=== PATIENT | female | born 1985 | race American Indian/Alaskan Native ===

== ENCOUNTER 2021-11-12 21:27 | Emergency (ER) | payer SELFPAY ==
[2021-11-12 22:07] VITALS: BP 165/87
[2021-11-13] MEDS ORDERED: SODIUM CHLORIDE 0.9% 1000 ML 1,000 ML ONE ×2 (16:30→22:18)
[2021-11-13] MEDS ORDERED: NALOXONE 0.4 MG/1 ML INJ ONE (22:16)
== END 2021-11-13 12:26 | disposition left against medical advice (07) ==
LOC: ED 21:27
DX: I10 Essential (primary) hypertension (principal); Z53.21 Procedure and treatment not carried out due to patient leaving prior to being seen by health care provider
CPT/HCPCS: J2310; J7030

== ENCOUNTER 2021-12-16 10:19 | Inpatient (IN) | payer BC ==
[2021-12-16] MEDS ORDERED: ASPIRIN 325 MG TAB PO ONE (18:17)
--- NOTE | 2021-12-16 18:48 | XRay Report ---
CHEST 2 VIEWS INDICATION / CLINICAL INFORMATION: bilateral leg swelling and SOB. COMPARISON: None available. FINDINGS: SUPPORT DEVICES: None. HEART / MEDIASTINUM: Borderline cardiomegaly. LUNGS / PLEURA: No significant pulmonary or pleural abnormality. No pneumothorax. ADDITIONAL FINDINGS: No significant additional findings. IMPRESSION: 1. Borderline cardiomegaly without acute pulmonary abnormality. Signer Name: Efren Dickey MD Signed: 12/16/2021 6:43 PM Workstation Name: [id number]
[2021-12-16 20:13] LABS: Mean Corpuscular HGB Conc 28 % (30-34); Platelet Count 567 K/mm3 (140-440); Red Blood Count 2.26 M/mm3 (3.65-5.03)
[2021-12-16 20:32] LABS: Alanine Aminotransferase 20 units/L (7-56); Albumin 3.9 g/dL (3.9-5); BUN/Creatinine Ratio 11; Blood Urea Nitrogen 9 mg/dL (7-17); Calcium 8.8 mg/dL (8.4-10.2); Hemolysis Index 0
[2021-12-16 21:30] LABS: Mean Corpuscular Volume 67 fl (79-97); Red Cell Distribution Width 38.3 % (13.2-15.2)
[2021-12-16 21:32] LABS: Hematocrit 15.1 % (30.3-42.9); Hemoglobin 4.2 gm/dl (10.1-14.3)
[2021-12-16] MEDS ORDERED: SODIUM CHLORIDE 0.9% 500 ML 500 ML IV ONE (23:44)
[2021-12-16 23:45] LABS: Anisocytosis 3+; Total Cells Counted 100
[2021-12-16 23:46] LABS: Hypochromasia 1+
[2021-12-17] MEDS ORDERED: MORPHINE 4 MG/1 ML INJ IV PRN (01:22)
[2021-12-17] MEDS ORDERED: MORPHINE 2 MG/1 ML INJ IV PRN (01:22)
[2021-12-17] MEDS ORDERED: ACETAMINOPHEN 325 MG TAB PO PRN (01:22)
[2021-12-17] MEDS ORDERED: ONDANSETRON 4 MG/2 ML INJ IV PRN (01:22)
[2021-12-17] MEDS ORDERED: MAGNESIUM HYDROXIDE (MOM) ORAL LIQD UDC PO PRN (01:22)
--- NOTE | 2021-12-17 01:28 | Emergency Department Report ---
ED General Adult HPI - General Chief complaint: Medical Clearance Stated complaint: BILATERAL FOOT SWELLING Time Seen by Provider: 12/16/21 23:51 Source: patient Mode of arrival: Ambulatory Limitations: No Limitations - History of Present Illness -: days(s) Radiation: non-radiation Consistency: constant Improves with: none Associated Symptoms: chest pain, malaise, weakness Treatments Prior to Arrival: none - Related Data Allergies Allergy/AdvReac Type Severity Reaction Status Date / Time No Known Allergies Allergy Verified 12/16/21 10:50 ED Review of Systems ROS: Stated complaint: BILATERAL FOOT SWELLING Other details as noted in HPI Constitutional: denies: chills, fever Eyes: denies: eye pain, eye discharge, vision change ENT: denies: ear pain, throat pain Respiratory: denies: cough, shortness of breath, wheezing Cardiovascular: denies: chest pain, palpitations Endocrine: no symptoms reported Gastrointestinal: denies: abdominal pain, nausea, diarrhea Genitourinary: denies: urgency, dysuria, discharge Musculoskeletal: denies: back pain, joint swelling, arthralgia Skin: denies: rash, lesions Neurological: denies: headache, weakness, paresthesias Psychiatric: denies: anxiety, depression Hematological/Lymphatic: denies: easy bleeding, easy bruising ED Past Medical Hx - Past Medical History Previous Medical History?: No Hx Hypertension: No ED Physical Exam - General Limitations: No Limitations General appearance: alert, in no apparent distress - Head Head exam: Present: atraumatic, normocephalic - Eye Eye exam: Present: normal appearance - ENT ENT exam: Present: mucous membranes moist - Neck Neck exam: Present: normal inspection - Respiratory Respiratory exam: Present: normal lung sounds bilaterally. Absent: respiratory distress - Cardiovascular Cardiovascular Exam: Present: regular rate, normal rhythm. Absent: systolic murmur, diastolic murmur, rubs, gallop - GI/Abdominal GI/Abdominal exam: Present: soft, normal bowel sounds - Extremities Exam Extremities exam: Present: normal inspection - Back Exam Back exam: Present: normal inspection - Neurological Exam Neurological exam: Present: alert, oriented X3 - Psychiatric Psychiatric exam: Present: normal affect, normal mood - Skin Skin exam: Present: intact, normal color, pallor. Absent: rash ED Course Vital Signs 12/16/21 10:47 Temperature 97.7 F Pulse Rate 93 H Respiratory 18 Rate Blood Pressure 140/71 [Left] O2 Sat by Pulse 99 Oximetry ED Medical Decision Making - Lab Data Result diagrams: 12/16/21 19:54 12/16/21 19:54 Critical care attestation.: If time is entered above; I have spent that time in minutes in the direct care of this critically ill patient, excluding procedure time. ED Disposition Clinical Impression: Anemia Disposition: 01 HOME / SELF CARE / HOMELESS Is pt being admited?: No Does the pt Need Aspirin: No Condition: Stable
--- NOTE | 2021-12-17 01:34 | History and Physical Report ---
History of Present Illness Date of examination: 12/17/21 Date of admission: 12/17/2021 Chief complaint: Shortness of Breath Lower Extremity Swelling History of present illness: 36-year-old -[place]ong[place] female with no significant past medical history except for remote history of anemia in the past presenting in the. Denies any coffee-ground emesis today complaining of generalized weakness, shortness of breath and lower extremity swelling. Symptoms have been ongoing for the past 2 weeks. She denies any chest pain, no fever or chills, no nausea or vomiting, no diaphoresis. She denies any dysuria or hematuria. Denies any bright red blood per rectum and denies any coffee-ground emesis. Patient indicates that she was diagnosed with anemia in the past and that he used iron pills in the past. She denies any heavy menstruation. Work-up in the emergency room today, lab reveals hemoglobin of 4.2 and hematocrit of 15.1. All other labs were essentially within normal limits. Chest x-ray shows borderline cardiomegaly without acute pulmonary abnormality. Patient is being prepared for blood transfusion. Past History Past Medical History: anemia Past Surgical History: No surgical history Social history: no significant social history Family history: cancer (Breast cancer ) Medications and Allergies Allergies Allergy/AdvReac Type Severity Reaction Status Date / Time No Known Allergies Allergy Verified 12/16/21 10:50 Active Meds: Active Medications Acetaminophen (Acetaminophen 325 Mg Tab) 650 mg PO Q4H PRN PRN Reason: Pain MILD(1-3)/Fever >100.5/PERALTA Magnesium Hydroxide (Magnesium Hydroxide (Mom) Oral Liqd Udc) 30 ml PO Q4H PRN PRN Reason: Constipation Morphine Sulfate (Morphine 2 Mg/1 Ml Inj) 2 mg IV Q4H PRN PRN Reason: Pain, Moderate (4-6) Morphine Sulfate (Morphine 4 Mg/1 Ml Inj) 4 mg IV Q4H PRN PRN Reason: Pain , Severe (7-10) Ondansetron HCl (Ondansetron 4 Mg/2 Ml Inj) 4 mg IV Q8H PRN PRN Reason: Nausea And Vomiting Sodium Chloride (Sodium Chloride 0.9% 10 Ml Flush Syringe) 10 ml IV BID FRANCISCO Sodium Chloride (Sodium Chloride 0.9% 10 Ml Flush Syringe) 10 ml IV PRN PRN PRN Reason: LINE FLUSH Review of Systems Constitutional: no fever, no chills Ears, nose, mouth and throat: no nasal congestion, no sore throat Cardiovascular: no chest pain, no palpitations Respiratory: shortness of breath, no cough Gastrointestinal: no abdominal pain, no nausea, no vomiting, no diarrhea Genitourinary Female: no pelvic pain, no flank pain, no dysuria Menstruation: no period heavy, no period spotting (This) Rectal: no bleeding Musculoskeletal: no neck pain, no low back pain Integumentary: no rash, no pruritis Neurological: no headaches, no confusion Psychiatric: no anxiety, no depression Endocrine: no polyphagia, no polydipsia, no polyuria, no nocturia Exam - Constitutional Vitals: Temp Pulse Resp BP Pulse Ox 97.7 F 93 H 18 140/71 99 12/16/21 10:47 12/16/21 10:47 12/16/21 10:47 12/16/21 10:47 12/16/21 10:47 General appearance: Present: no acute distress, well-nourished, other (Moderate pallor) - EENT Eyes: Present: PERRL, EOM intact. Absent: scleral icterus ENT: hearing intact, clear oral mucosa, dentition normal - Neck Neck: Present: supple, normal ROM - Respiratory Respiratory effort: normal Respiratory: bilateral: CTA - Cardiovascular Rhythm: regular Heart Sounds: Present: S1 & S2, systolic murmur (Grade 2/6 systolic murmur) - Extremities Extremities: no ischemia, pulses intact, normal temperature, normal color, Full ROM Extremity abnormal: edema (3+ bilateral lower extremity edema) Peripheral Pulses: within normal limits - Abdominal General gastrointestinal: Present: soft, non-tender, non-distended, normal bowel sounds. Absent: mass - Integumentary Integumentary: Present: clear, warm, dry, normal turgor. Absent: rash - Musculoskeletal Musculoskeletal: strength equal bilaterally - Psychiatric Psychiatric: appropriate mood/affect, intact judgment & insight, memory intact, cooperative - Neurologic Neurologic: CNII-XII intact, no focal deficits, moves all extremities HEART Score - HEART Score Troponin: Troponin T < 0.010 ng/mL (0.00-0.029) 12/17/21 00:20 Results - Labs CBC & Chem 7: 12/16/21 19:54 12/16/21 19:54 Labs: Abnormal lab results 12/16/21 12/16/21 12/16/21 Range/Units 19:54 19:54 23:59 RBC 2.26 L (3.65-5.03) M/mm3 Hgb 4.2 L* (10.1-14.3) gm/dl Hct 15.1 L* (30.3-42.9) % MCV 67 L (79-97) fl MCH 18 L (28-32) pg MCHC 28 L (30-34) % RDW 38.3 H (13.2-15.2) % Plt Count 567 H (140-440) K/mm3 Monocytes % (Manual) 14.0 H (0.0-7.3) % Basophils % (Manual) 2.0 H (0.0-1.8) % Chloride 107.3 H (98-107) mmol/L Carbon Dioxide 20 L (22-30) mmol/L Glucose 102 H (65-100) mg/dL Crossmatch See Detail Assessment and Plan Assessment: 1. Anemia-microcytic , etiology unclear Plan: 1. Patient being prepared for blood transfusion. 2. We will monitor CBC. 3. Consult placed to sales representative church furniture for evaluation. 4. We will check stool Hemoccults. DVT prophylaxis: Sequential compression device. CODE STATUS: Full code
[2021-12-17] MEDS ORDERED: SODIUM CHLORIDE 0.9% 500 ML 500 ML IV ONE (03:32)
--- NOTE | 2021-12-17 10:59 | Hem/Onc Consultation ---
History of Present Illness - Reason for Consult Consult date: 12/17/21 Anemia - History of Present Illness Heme Consult Note Seen via [employer] CPT 73446 Dx Anemia This is a 36yo AA female who presents to [facility] ED with generalized weakness, shortness of breath and lower extremity swelling. Past medical history of anemia. Denies coffee-ground emesis, dysuria, hematuria, blood in stool. Work-up in the emergency room reveal hemoglobin of 4.2 and hematocrit of 15.1. Chest x- ray shows borderline cardiomegaly without acute pulmonary abnormality. Hematology was consulted for evaluation of anemia. Patient examined at bedside, in no acute distress noted. Currently receiving RBC transfusion. Reports ice craving/pica, low energy, heavy and irregular menstrual bleeding. Reports iron deficiency anemia with previous pregnancies, last being 11 years ago. DATA REVIEWED BELOW IMP: Microcytic anemia, likely related to severe iron deficiency --Rule out sickle cell, thalassemia, hemolysis Thrombocytosis, reactive to severe iron deficiency anemia Pica, due to iron deficiency Bilateral extremity edema, rule out DVT Plan: Bilateral extremity duplex Unable to obtain iron studies post RBC transfusions as results would be uninterpretable --Start Ferrlicet 125mg daily x 3 days Transfuse 1 unit RBC whenever hct <23 Labs to include anemia workup: hgEP, LDH, retic Outpatient hematology follow up with Dr. Eaton if possible Recommend 3RD PRESSMAN follow up for heavy menstrual bleeding Laboratory Last Values WBC 5.3 K/mm3 (4.5-11.0) 12/16/21 19:54 Hgb 4.2 gm/dl (10.1-14.3) L* 12/16/21 19:54 Hct 15.1 % (30.3-42.9) L* 12/16/21 19:54 MCV 67 fl (79-97) L 12/16/21 19:54 Plt Count 567 K/mm3 (140-440) H 12/16/21 19:54 Creatinine 0.8 mg/dL (0.6-1.2) 12/16/21 19:54 AST 19 units/L (5-40) 12/16/21 19:54 ALT 20 units/L (7-56) 12/16/21 19:54 Alkaline Phosphatase 110 units/L (35-129) 12/16/21 19:54 Blood Type A POSITIVE 12/16/21 23:59 Antibody Screen Negative 12/16/21 23:59 Crossmatch See Detail 12/16/21 23:59 Past History Past Medical History: anemia Past Surgical History: No surgical history Social history: no significant social history Family history: cancer (Breast cancer ) Medications and Allergies Allergies Allergy/AdvReac Type Severity Reaction Status Date / Time No Known Allergies Allergy Verified 12/16/21 10:50 Active Meds: Active Medications Acetaminophen (Acetaminophen 325 Mg Tab) 650 mg PO Q4H PRN PRN Reason: Pain MILD(1-3)/Fever >100.5/PERALTA Sodium Chloride (Nacl 0.9% 500 Ml) 500 mls @ 42 mls/hr IV ONCE ONE Stop: 12/17/21 15:26 Magnesium Hydroxide (Magnesium Hydroxide (Mom) Oral Liqd Udc) 30 ml PO Q4H PRN PRN Reason: Constipation Morphine Sulfate (Morphine 2 Mg/1 Ml Inj) 2 mg IV Q4H PRN PRN Reason: Pain, Moderate (4-6) Morphine Sulfate (Morphine 4 Mg/1 Ml Inj) 4 mg IV Q4H PRN PRN Reason: Pain , Severe (7-10) Ondansetron HCl (Ondansetron 4 Mg/2 Ml Inj) 4 mg IV Q8H PRN PRN Reason: Nausea And Vomiting Sodium Chloride (Sodium Chloride 0.9% 10 Ml Flush Syringe) 10 ml IV BID FRANCISCO Sodium Chloride (Sodium Chloride 0.9% 10 Ml Flush Syringe) 10 ml IV PRN PRN PRN Reason: LINE FLUSH Exam - Constitutional Vitals: Last Vital Signs Temp 98.9 F 12/17/21 10:05 Pulse 89 12/17/21 10:05 Resp 21 12/17/21 10:05 BP 165/89 12/17/21 10:05 Pulse Ox 100 12/17/21 10:05 Results - Labs lab Results: Laboratory Results - last 24 hr 12/16/21 12/16/21 12/16/21 19:54 19:54 23:59 WBC 5.3 RBC 2.26 L Hgb 4.2 L* Hct 15.1 L* MCV 67 L MCH 18 L MCHC 28 L RDW 38.3 H Plt Count 567 H Add Manual Diff Complete Total Counted 100 Seg Neuts % (Manual) 55.0 Band Neutrophils % 0 Lymphocytes % (Manual) 26.0 Reactive Lymphs % (Man) 0 Monocytes % (Manual) 14.0 H Eosinophils % (Manual) 3.0 Basophils % (Manual) 2.0 H Metamyelocytes % 0 Myelocytes % 0 Promyelocytes % 0 Blast Cells % 0 Nucleated RBC % Not Reportable Seg Neutrophils # Man 2.9 Band Neutrophils # 0.0 Lymphocytes # (Manual) 1.4 Abs React Lymphs (Man) 0.0 Monocytes # (Manual) 0.7 Eosinophils # (Manual) 0.2 Basophils # (Manual) 0.1 Metamyelocytes # 0.0 Myelocytes # 0.0 Promyelocytes # 0.0 Blast Cells # 0.0 WBC Morphology Not Reportable Hypersegmented Neuts Not Reportable Hyposegmented Neuts Not Reportable Hypogranular Neuts Not Reportable Smudge Cells Not Reportable Toxic Granulation Not Reportable Toxic Vacuolation Not Reportable Dohle Bodies Not Reportable Pelger-Huet Anomaly Not Reportable Faye Rods Not Reportable Platelet Estimate Not Reportable Clumped Platelets Not Reportable Plt Clumps, EDTA Not Reportable Large Platelets Not Reportable Giant Platelets Not Reportable Platelet Satelliting Not Reportable Plt Morphology Comment Not Reportable RBC Morphology Not Reportable Dimorphic RBCs Not Reportable Polychromasia Not Reportable Hypochromasia 1+ Poikilocytosis Not Reportable Anisocytosis 3+ Microcytosis 1+ Macrocytosis Not Reportable Spherocytes Not Reportable Pappenheimer Bodies Not Reportable Sickle Cells Not Reportable Target Cells Not Reportable Tear Drop Cells Not Reportable Ovalocytes Not Reportable Helmet Cells Not Reportable Finn-[place] Bodies Not Reportable [place] Rings Not Reportable [place] Cells Not Reportable Bite Cells Not Reportable Crenated Cell Not Reportable Elliptocytes Not Reportable Acanthocytes (Spur) Not Reportable Rouleaux Not Reportable Hemoglobin C Crystals Not Reportable Schistocytes Not Reportable Malaria parasites Not Reportable Adria Bodies Not Reportable Hem Pathologist Commnt No Sodium 137 Potassium 4.1 Chloride 107.3 H Carbon Dioxide 20 L Anion Gap 14 BUN 9 Creatinine 0.8 Estimated GFR > 60 BUN/Creatinine Ratio 11 Glucose 102 H Calcium 8.8 Total Bilirubin 0.50 AST 19 ALT 20 Alkaline Phosphatase 110 Troponin T < 0.010 Total Protein 6.8 Albumin 3.9 Albumin/Globulin Ratio 1.3 Blood Type A POSITIVE Antibody Screen Negative Crossmatch See Detail 12/17/21 00:20 WBC RBC Hgb Hct MCV MCH MCHC RDW Plt Count Add Manual Diff Total Counted Seg Neuts % (Manual) Band Neutrophils % Lymphocytes % (Manual) Reactive Lymphs % (Man) Monocytes % (Manual) Eosinophils % (Manual) Basophils % (Manual) Metamyelocytes % Myelocytes % Promyelocytes % Blast Cells % Nucleated RBC % Seg Neutrophils # Man Band Neutrophils # Lymphocytes # (Manual) Abs React Lymphs (Man) Monocytes # (Manual) Eosinophils # (Manual) Basophils # (Manual) Metamyelocytes # Myelocytes # Promyelocytes # Blast Cells # WBC Morphology Hypersegmented Neuts Hyposegmented Neuts Hypogranular Neuts Smudge Cells Toxic Granulation Toxic Vacuolation Dohle Bodies Pelger-Huet Anomaly Faye Rods Platelet Estimate Clumped Platelets Plt Clumps, EDTA Large Platelets Giant Platelets Platelet Satelliting Plt Morphology Comment RBC Morphology Dimorphic RBCs Polychromasia Hypochromasia Poikilocytosis Anisocytosis Microcytosis Macrocytosis Spherocytes Pappenheimer Bodies Sickle Cells Target Cells Tear Drop Cells Ovalocytes Helmet Cells Finn-[place]mond Bodies [place] Rings [place] Cells Bite Cells Crenated Cell Elliptocytes Acanthocytes (Spur) Rouleaux Hemoglobin C Crystals Schistocytes Malaria parasites Adria Bodies Hem Pathologist Commnt Sodium Potassium Chloride Carbon Dioxide Anion Gap BUN Creatinine Estimated GFR BUN/Creatinine Ratio Glucose Calcium Total Bilirubin AST ALT Alkaline Phosphatase Troponin T < 0.010 Total Protein Albumin Albumin/Globulin Ratio Blood Type Antibody Screen Crossmatch
--- NOTE | 2021-12-17 12:10 | Progress Note ---
Assessment and Plan Assessment and plan: This is a 36yo AA female who presents to [facility] ED with generalized weakness, shortness of breath and lower extremity swelling. Past medical history of anemia. Denies coffee-ground emesis, dysuria, hematuria, blood in stool. Work-up in the emergency room reveal hemoglobin of 4.2 and hematocrit of 15.1. Chest x- ray shows borderline cardiomegaly without acute pulmonary abnormality. Hematology was consulted for evaluation of anemia Severe iron deficiency anemia Thrombocytosis Bilateral lower extremity edema 12/17/2021. We will rule out sickle cell, thalassemia and hemolysis. Hematology following. Start Ferrlecit 125 mg daily x3 days. 3 unit PRBCs ordered. Unable to obtain iron studies post RBC transfusions as results would be uninterpretable. Labs to include anemia workup: hgEP, LDH, retic. Bilateral lower extremity ultrasound to rule out DVT History Interval history: No new issues over night Hospitalist Physical - Constitutional Vitals: Temp Pulse Resp BP Pulse Ox 98.9 F 89 21 165/89 100 12/17/21 10:05 12/17/21 10:05 12/17/21 10:05 12/17/21 10:05 12/17/21 10:05 General appearance: Present: no acute distress, well-nourished, other (Moderate pallor) - EENT Eyes: Present: PERRL, EOM intact ENT: hearing intact, clear oral mucosa, dentition normal - Neck Neck: Present: supple, normal ROM - Respiratory Respiratory effort: normal Respiratory: bilateral: CTA - Cardiovascular Rhythm: regular Heart Sounds: Present: S1 & S2. Absent: gallop, rub - Extremities Extremities: no ischemia, No edema, Full ROM - Abdominal General gastrointestinal: soft, non-tender, non-distended, normal bowel sounds - Integumentary Integumentary: Present: clear, warm, dry - Neurologic Neurologic: CNII-XII intact, moves all extremities HEART Score - HEART Score Troponin: Troponin T < 0.010 ng/mL (0.00-0.029) 12/17/21 00:20 Results - Labs CBC & Chem 7: 12/16/21 19:54 12/16/21 19:54 Labs: Laboratory Last Values WBC 5.3 K/mm3 (4.5-11.0) 12/16/21 19:54 RBC 2.26 M/mm3 (3.65-5.03) L 12/16/21 19:54 Hgb 4.2 gm/dl (10.1-14.3) L* 12/16/21 19:54 Hct 15.1 % (30.3-42.9) L* 12/16/21 19:54 MCV 67 fl (79-97) L 12/16/21 19:54 MCH 18 pg (28-32) L 12/16/21 19:54 MCHC 28 % (30-34) L 12/16/21 19:54 RDW 38.3 % (13.2-15.2) H 12/16/21 19:54 Plt Count 567 K/mm3 (140-440) H 12/16/21 19:54 Add Manual Diff Complete 12/16/21 19:54 Total Counted 100 12/16/21 19:54 Seg Neuts % (Manual) 55.0 % (40.0-70.0) 12/16/21 19:54 Band Neutrophils % 0 % 12/16/21 19:54 Lymphocytes % (Manual) 26.0 % (13.4-35.0) 12/16/21 19:54 Reactive Lymphs % (Man) 0 % 12/16/21 19:54 Monocytes % (Manual) 14.0 % (0.0-7.3) H 12/16/21 19:54 Eosinophils % (Manual) 3.0 % (0.0-4.3) 12/16/21 19:54 Basophils % (Manual) 2.0 % (0.0-1.8) H 12/16/21 19:54 Metamyelocytes % 0 % 12/16/21 19:54 Myelocytes % 0 % 12/16/21 19:54 Promyelocytes % 0 % 12/16/21 19:54 Blast Cells % 0 % 12/16/21 19:54 Nucleated RBC % Not Reportable 12/16/21 19:54 Seg Neutrophils # Man 2.9 K/mm3 (1.8-7.7) 12/16/21 19:54 Band Neutrophils # 0.0 K/mm3 12/16/21 19:54 Lymphocytes # (Manual) 1.4 K/mm3 (1.2-5.4) 12/16/21 19:54 Abs React Lymphs (Man) 0.0 K/mm3 12/16/21 19:54 Monocytes # (Manual) 0.7 K/mm3 (0.0-0.8) 12/16/21 19:54 Eosinophils # (Manual) 0.2 K/mm3 (0.0-0.4) 12/16/21 19:54 Basophils # (Manual) 0.1 K/mm3 (0.0-0.1) 12/16/21 19:54 Metamyelocytes # 0.0 K/mm3 12/16/21 19:54 Myelocytes # 0.0 K/mm3 12/16/21 19:54 Promyelocytes # 0.0 K/mm3 12/16/21 19:54 Blast Cells # 0.0 K/mm3 12/16/21 19:54 WBC Morphology Not Reportable 12/16/21 19:54 Hypersegmented Neuts Not Reportable 12/16/21 19:54 Hyposegmented Neuts Not Reportable 12/16/21 19:54 Hypogranular Neuts Not Reportable 12/16/21 19:54 Smudge Cells Not Reportable 12/16/21 19:54 Toxic Granulation Not Reportable 12/16/21 19:54 Toxic Vacuolation Not Reportable 12/16/21 19:54 Dohle Bodies Not Reportable 12/16/21 19:54 Pelger-Huet Anomaly Not Reportable 12/16/21 19:54 Faye Rods Not Reportable 12/16/21 19:54 Platelet Estimate Not Reportable 12/16/21 19:54 Clumped Platelets Not Reportable 12/16/21 19:54 Plt Clumps, EDTA Not Reportable 12/16/21 19:54 Large Platelets Not Reportable 12/16/21 19:54 Giant Platelets Not Reportable 12/16/21 19:54 Platelet Satelliting Not Reportable 12/16/21 19:54 Plt Morphology Comment Not Reportable 12/16/21 19:54 RBC Morphology Not Reportable 12/16/21 19:54 Dimorphic RBCs Not Reportable 12/16/21 19:54 Polychromasia Not Reportable 12/16/21 19:54 Hypochromasia 1+ 12/16/21 19:54 Poikilocytosis Not Reportable 12/16/21 19:54 Anisocytosis 3+ 12/16/21 19:54 Microcytosis 1+ 12/16/21 19:54 Macrocytosis Not Reportable 12/16/21 19:54 Spherocytes Not Reportable 12/16/21 19:54 Pappenheimer Bodies Not Reportable 12/16/21 19:54 Sickle Cells Not Reportable 12/16/21 19:54 Target Cells Not Reportable 12/16/21 19:54 Tear Drop Cells Not Reportable 12/16/21 19:54 Ovalocytes Not Reportable 12/16/21 19:54 Helmet Cells Not Reportable 12/16/21 19:54 Finn-[place] Bodies Not Reportable 12/16/21 19:54 [place] Rings Not Reportable 12/16/21 19:54 [place] Cells Not Reportable 12/16/21 19:54 Bite Cells Not Reportable 12/16/21 19:54 Crenated Cell Not Reportable 12/16/21 19:54 Elliptocytes Not Reportable 12/16/21 19:54 Acanthocytes (Spur) Not Reportable 12/16/21 19:54 Rouleaux Not Reportable 12/16/21 19:54 Hemoglobin C Crystals Not Reportable 12/16/21 19:54 Schistocytes Not Reportable 12/16/21 19:54 Malaria parasites Not Reportable 12/16/21 19:54 Adria Bodies Not Reportable 12/16/21 19:54 Hem Pathologist Commnt No 12/16/21 19:54 Sodium 137 mmol/L (137-145) 12/16/21 19:54 Potassium 4.1 mmol/L (3.6-5.0) 12/16/21 19:54 Chloride 107.3 mmol/L (98-107) H 12/16/21 19:54 Carbon Dioxide 20 mmol/L (22-30) L 12/16/21 19:54 Anion Gap 14 mmol/L 12/16/21 19:54 BUN 9 mg/dL (7-17) 12/16/21 19:54 Creatinine 0.8 mg/dL (0.6-1.2) 12/16/21 19:54 Estimated GFR > 60 ml/min 12/16/21 19:54 BUN/Creatinine Ratio 11 % 12/16/21 19:54 Glucose 102 mg/dL (65-100) H 12/16/21 19:54 Calcium 8.8 mg/dL (8.4-10.2) 12/16/21 19:54 Total Bilirubin 0.50 mg/dL (0.1-1.2) 12/16/21 19:54 AST 19 units/L (5-40) 12/16/21 19:54 ALT 20 units/L (7-56) 12/16/21 19:54 Alkaline Phosphatase 110 units/L (35-129) 12/16/21 19:54 Troponin T < 0.010 ng/mL (0.00-0.029) 12/17/21 00:20 Total Protein 6.8 g/dL (6.3-8.2) 12/16/21 19:54 Albumin 3.9 g/dL (3.9-5) 12/16/21 19:54 Albumin/Globulin Ratio 1.3 % 12/16/21 19:54 Blood Type A POSITIVE 12/16/21 23:59 Antibody Screen Negative 12/16/21 23:59 Crossmatch See Detail 12/16/21 23:59 Lipscomb/IV: Voiding Method Toilet Active Medications - Current Medications Current Medications: Generic Name Dose Route Start Last Admin Trade Name Freq PRN Reason Stop Dose Admin Acetaminophen 650 mg 12/17/21 01:22 Acetaminophen 325 Mg Tab PO Q4H PRN Pain MILD(1-3)/Fever >100.5/PERALTA Sodium Chloride 500 mls @ 42 mls/hr 12/17/21 03:32 Nacl 0.9% 500 Ml IV 12/17/21 15:26 ONCE ONE Ferric Sodium Gluconate 110 mls @ 100 mls/hr 12/17/21 12:00 Complex 125 mg/ Sodium IV 12/20/21 11:59 Chloride DAILY FRANCISCO Magnesium Hydroxide 30 ml 12/17/21 01:22 Magnesium Hydroxide (Mom) Oral Liqd Udc PO Q4H PRN Constipation Morphine Sulfate 2 mg 12/17/21 01:22 Morphine 2 Mg/1 Ml Inj IV Q4H PRN Pain, Moderate (4-6) Morphine Sulfate 4 mg 12/17/21 01:22 Morphine 4 Mg/1 Ml Inj IV Q4H PRN Pain , Severe (7-10) Ondansetron HCl 4 mg 12/17/21 01:22 Ondansetron 4 Mg/2 Ml Inj IV Q8H PRN Nausea And Vomiting Sodium Chloride 10 ml 12/17/21 10:00 Sodium Chloride 0.9% 10 Ml Flush Syringe IV BID FRANCISCO Sodium Chloride 10 ml 12/17/21 01:22 Sodium Chloride 0.9% 10 Ml Flush Syringe IV PRN PRN LINE FLUSH
--- NOTE | 2021-12-17 13:07 | Vascular Lab Report ---
DUPLEX DOPPLER LOWER EXTREMITY VEINS, BILATERAL INDICATION / CLINICAL INFORMATION: Leg swelling. TECHNIQUE: Duplex doppler imaging was performed through the veins of both lower extremities using venous arturo diana and other maneuvers. COMPARISON: None available. FINDINGS: RIGHT COMMON FEMORAL VEIN: Negative. RIGHT FEMORAL VEIN: Negative. RIGHT POPLITEAL VEIN: Negative. RIGHT CALF VEINS: Negative. LEFT COMMON FEMORAL VEIN: Negative. LEFT FEMORAL VEIN: Negative. LEFT POPLITEAL VEIN: Negative. LEFT CALF VEINS: Negative. ADDITIONAL FINDINGS: None. IMPRESSION: 1. No sonographic evidence for DVT in either lower extremity. Signer Name: Efren Dickey MD Signed: 12/17/2021 1:02 PM Workstation Name: [id number]
[2021-12-17] MEDS: SODIUM FERRIC GLUCON/SUCRO 125 MG in SODIUM CHLORIDE 0.9% 100 ML IV SCH (15:55)
[2021-12-18 06:22] LABS: Blood Urea Nitrogen 7 mg/dL (7-17); Calcium 8.1 mg/dL (8.4-10.2); Hemolysis Index 0
[2021-12-18 06:23] LABS: BUN/Creatinine Ratio 10
[2021-12-18 06:44] LABS: Hematocrit 21.2 % (30.3-42.9); Hemoglobin 6.3 gm/dl (10.1-14.3); Mean Corpuscular HGB Conc 30 % (30-34); Mean Corpuscular Volume 74 fl (79-97); Platelet Count 657 K/mm3 (140-440); Red Blood Count 2.87 M/mm3 (3.65-5.03)
[2021-12-18 06:52] LABS: Red Cell Distribution Width 36.8 % (13.2-15.2)
[2021-12-18 07:57] LABS: Basophils % (Manual) 0 % (0.0-1.8); Eosinophils % (Manual) 0 % (0.0-4.3); Total Cells Counted 100
[2021-12-18 07:58] LABS: Anisocytosis 3+; Hypochromasia 2+; Platelet Estimate Consistent w Auto
[2021-12-18] MEDS ORDERED: SODIUM CHLORIDE 0.9% 500 ML 500 ML IV NR (08:49)
--- NOTE | 2021-12-18 09:58 | Hem/Onc Progress Note ---
Subjective Date of service: 12/18/21 Interval history: Heme Progress Note Seen via [facility] CPT 41157 Dx Anemia 36yo AA female with generalized weakness, shortness of breath and lower extremity swelling PMHx of anemia Initial hemoglobin was 4.2 and hematocrit of 15.1 in the ED Chest x-ray showed borderline cardiomegaly without acute pulmonary abnormality. Hematology was consulted for evaluation of anemia. Patient examined at bedside, in no acute distress noted. Reports feeling better today. Labs and plan discussed with patient. Bilateral extremity U/S negative Retic 3% DATA REVIEWED BELOW IMP: Microcytic anemia, likely related to severe iron deficiency --Rule out sickle cell, thalassemia, hemolysis, pending LDH Thrombocytosis, reactive to severe iron deficiency anemia Pica, due to iron deficiency Plan: Transfuse 1 unit RBC today Continue Ferrlicet 125mg daily x 3 days , dose 2/3 today Standing order: --Transfuse 1 unit RBC whenever hct <23 Follow hgEP, LDH Outpatient hematology follow up with Dr. Eaton if possible Recommend [employer] follow up for heavy menstrual bleeding Laboratory Last Values WBC 8.6 K/mm3 (4.5-11.0) 12/18/21 05:00 Hgb 6.3 gm/dl (10.1-14.3) L 12/18/21 05:00 Hct 21.2 % (30.3-42.9) L D 12/18/21 05:00 MCV 74 fl (79-97) L 12/18/21 05:00 Plt Count 657 K/mm3 (140-440) H 12/18/21 05:00 Seg Neuts % (Manual) 83.0 % (40.0-70.0) H 12/18/21 05:00 Lymphocytes % (Manual) 12.0 % (13.4-35.0) L 12/18/21 05:00 Percent Retic 3.28 % (0.78-2.58) H 12/18/21 05:00 Creatinine 0.7 mg/dL (0.6-1.2) 12/18/21 05:00 AST 19 units/L (5-40) 12/16/21 19:54 ALT 20 units/L (7-56) 12/16/21 19:54 Alkaline Phosphatase 110 units/L (35-129) 12/16/21 19:54 Blood Type A POSITIVE 12/16/21 23:59 Antibody Screen Negative 12/16/21 23:59 Crossmatch See Detail 12/16/21 23:59 Objective - Constitutional Vitals: Last Vital Signs Temp 98.5 F 12/17/21 12:35 Pulse 101 H 12/17/21 12:35 Resp 18 12/17/21 22:28 BP 155/89 12/17/21 12:35 Pulse Ox 98 12/17/21 22:28 - Labs Lab Results: Laboratory Results - last 24 hr 12/16/21 12/18/21 12/18/21 23:59 05:00 05:00 WBC 8.6 RBC 2.87 L Hgb 6.3 L Hct 21.2 L D MCV 74 L MCH 22 L MCHC 30 RDW 36.8 H Plt Count 657 H Add Manual Diff Complete Total Counted 100 Seg Neuts % (Manual) 83.0 H Band Neutrophils % 0 Lymphocytes % (Manual) 12.0 L Reactive Lymphs % (Man) 0 Monocytes % (Manual) 5.0 Eosinophils % (Manual) 0 Basophils % (Manual) 0 Metamyelocytes % 0 Myelocytes % 0 Promyelocytes % 0 Blast Cells % 0 Nucleated RBC % 4.0 H Seg Neutrophils # Man 7.1 Band Neutrophils # 0.0 Lymphocytes # (Manual) 1.0 L Abs React Lymphs (Man) 0.0 Monocytes # (Manual) 0.4 Eosinophils # (Manual) 0.0 Basophils # (Manual) 0.0 Metamyelocytes # 0.0 Myelocytes # 0.0 Promyelocytes # 0.0 Blast Cells # 0.0 WBC Morphology Not Reportable Hypersegmented Neuts Not Reportable Hyposegmented Neuts Not Reportable Hypogranular Neuts Not Reportable Smudge Cells Not Reportable Toxic Granulation Not Reportable Toxic Vacuolation Not Reportable Dohle Bodies Not Reportable Pelger-Huet Anomaly Not Reportable Faye Rods Not Reportable Platelet Estimate Consistent w auto Clumped Platelets Not Reportable Plt Clumps, EDTA Few Large Platelets Not Reportable Giant Platelets Not Reportable Platelet Satelliting Not Reportable Plt Morphology Comment Not Reportable RBC Morphology Not Reportable Dimorphic RBCs Not Reportable Polychromasia Few Hypochromasia 2+ Poikilocytosis Not Reportable Anisocytosis 3+ Microcytosis 1+ Macrocytosis Not Reportable Spherocytes Not Reportable Pappenheimer Bodies Not Reportable Sickle Cells Not Reportable Target Cells Not Reportable Tear Drop Cells Not Reportable Ovalocytes Not Reportable Helmet Cells Not Reportable Finn-[place] Bodies Not Reportable [place] Rings Not Reportable [place] Cells Not Reportable Bite Cells Not Reportable Crenated Cell Not Reportable Elliptocytes 1+ Acanthocytes (Spur) Not Reportable Rouleaux Not Reportable Hemoglobin C Crystals Not Reportable Schistocytes Not Reportable Malaria parasites Not Reportable Percent Retic 3.28 H Adria Bodies Not Reportable Hem Pathologist Commnt No Sodium 139 Potassium 3.9 Chloride 108.4 H Carbon Dioxide 20 L Anion Gap 15 BUN 7 Creatinine 0.7 Estimated GFR > 60 BUN/Creatinine Ratio 10 Glucose 77 Calcium 8.1 L Blood Type A POSITIVE Antibody Screen Negative Crossmatch See Detail Medications & Allergies - Medications Allergies/Adverse Reactions: Allergies No Known Allergies Allergy (Verified 12/16/21 10:50) Home Medications: Home Medications Medication Instructions Recorded Confirmed Last Taken Type No Known Home Medications [No 12/17/21 12/17/21 Unknown History Reported Home Medications] Active Medications: Generic Name Dose Route Start Last Admin Trade Name Freq PRN Reason Stop Dose Admin Acetaminophen 650 mg 12/17/21 01:22 Acetaminophen 325 Mg Tab PO Q4H PRN Pain MILD(1-3)/Fever >100.5/PERALTA Ferric Sodium Gluconate 110 mls @ 100 mls/hr 12/17/21 12:00 12/17/21 19:35 Complex 125 mg/ Sodium IV 12/20/21 11:59 Infused Chloride DAILY FRANCISCO Infusion Sodium Chloride 500 mls @ 0 mls/hr 12/18/21 08:49 Nacl 0.9% 500 Ml IV 12/18/21 20:00 ONCE NR As Directed Magnesium Hydroxide 30 ml 12/17/21 01:22 Magnesium Hydroxide (Mom) Oral Liqd Udc PO Q4H PRN Constipation Morphine Sulfate 2 mg 12/17/21 01:22 Morphine 2 Mg/1 Ml Inj IV Q4H PRN Pain, Moderate (4-6) Morphine Sulfate 4 mg 12/17/21 01:22 Morphine 4 Mg/1 Ml Inj IV Q4H PRN Pain , Severe (7-10) Ondansetron HCl 4 mg 12/17/21 01:22 Ondansetron 4 Mg/2 Ml Inj IV Q8H PRN Nausea And Vomiting Sodium Chloride 10 ml 12/17/21 10:00 12/17/21 22:58 Sodium Chloride 0.9% 10 Ml Flush Syringe IV Not Given BID FRANCISCO Sodium Chloride 10 ml 12/17/21 01:22 Sodium Chloride 0.9% 10 Ml Flush Syringe IV PRN PRN LINE FLUSH
[2021-12-18] MEDS: SODIUM FERRIC GLUCON/SUCRO 125 MG in SODIUM CHLORIDE 0.9% 100 ML IV SCH (12:06)
--- NOTE | 2021-12-18 12:41 | Progress Note ---
Assessment and Plan Assessment and plan: This is a 36yo AA female who presents to [facility] ED with generalized weakness, shortness of breath and lower extremity swelling. Past medical history of anemia. Denies coffee-ground emesis, dysuria, hematuria, blood in stool. Work-up in the emergency room reveal hemoglobin of 4.2 and hematocrit of 15.1. Chest x- ray shows borderline cardiomegaly without acute pulmonary abnormality. Hematology was consulted for evaluation of anemia Severe iron deficiency anemia Thrombocytosis Bilateral lower extremity edema 12/17/2021. We will rule out sickle cell, thalassemia and hemolysis. Hematology following. Start Ferrlecit 125 mg daily x3 days. 3 unit PRBCs ordered. Unable to obtain iron studies post RBC transfusions as results would be uninterpretable. Labs to include anemia workup: hgEP, LDH, retic. Bilateral lower extremity ultrasound to rule out DVT 12/18/2021. Patient received 1 unit PRBCs today with hemoglobin 6.3. Patient is to continue Ferrlecit 125 mg IV daily x3 days with her second dose today. Patient may potentially discharge after IV Ferrlecit tomorrow. History Interval history: No new issues over night Hospitalist Physical - Constitutional Vitals: Temp Pulse Resp BP Pulse Ox 98.5 F 101 H 18 155/89 98 12/17/21 12:35 12/17/21 12:35 12/17/21 22:28 12/17/21 12:35 12/17/21 22:28 General appearance: Present: no acute distress, well-nourished, other (Moderate pallor) - EENT Eyes: Present: PERRL, EOM intact ENT: hearing intact, clear oral mucosa, dentition normal - Neck Neck: Present: supple, normal ROM - Respiratory Respiratory effort: normal Respiratory: bilateral: CTA - Cardiovascular Rhythm: regular Heart Sounds: Present: S1 & S2. Absent: gallop, rub - Extremities Extremities: no ischemia, No edema, Full ROM - Abdominal General gastrointestinal: soft, non-tender, non-distended, normal bowel sounds - Integumentary Integumentary: Present: clear, warm, dry - Neurologic Neurologic: CNII-XII intact, moves all extremities HEART Score - HEART Score Troponin: Troponin T < 0.010 ng/mL (0.00-0.029) 12/17/21 00:20 Results - Labs CBC & Chem 7: 12/18/21 05:00 12/18/21 05:00 Labs: Laboratory Last Values WBC 8.6 K/mm3 (4.5-11.0) 12/18/21 05:00 RBC 2.87 M/mm3 (3.65-5.03) L 12/18/21 05:00 Hgb 6.3 gm/dl (10.1-14.3) L 12/18/21 05:00 Hct 21.2 % (30.3-42.9) L D 12/18/21 05:00 MCV 74 fl (79-97) L 12/18/21 05:00 MCH 22 pg (28-32) L 12/18/21 05:00 MCHC 30 % (30-34) 12/18/21 05:00 RDW 36.8 % (13.2-15.2) H 12/18/21 05:00 Plt Count 657 K/mm3 (140-440) H 12/18/21 05:00 Add Manual Diff Complete 12/18/21 05:00 Total Counted 100 12/18/21 05:00 Seg Neuts % (Manual) 83.0 % (40.0-70.0) H 12/18/21 05:00 Band Neutrophils % 0 % 12/18/21 05:00 Lymphocytes % (Manual) 12.0 % (13.4-35.0) L 12/18/21 05:00 Reactive Lymphs % (Man) 0 % 12/18/21 05:00 Monocytes % (Manual) 5.0 % (0.0-7.3) 12/18/21 05:00 Eosinophils % (Manual) 0 % (0.0-4.3) 12/18/21 05:00 Basophils % (Manual) 0 % (0.0-1.8) 12/18/21 05:00 Metamyelocytes % 0 % 12/18/21 05:00 Myelocytes % 0 % 12/18/21 05:00 Promyelocytes % 0 % 12/18/21 05:00 Blast Cells % 0 % 12/18/21 05:00 Nucleated RBC % 4.0 % (0.0-0.9) H 12/18/21 05:00 Seg Neutrophils # Man 7.1 K/mm3 (1.8-7.7) 12/18/21 05:00 Band Neutrophils # 0.0 K/mm3 12/18/21 05:00 Lymphocytes # (Manual) 1.0 K/mm3 (1.2-5.4) L 12/18/21 05:00 Abs React Lymphs (Man) 0.0 K/mm3 12/18/21 05:00 Monocytes # (Manual) 0.4 K/mm3 (0.0-0.8) 12/18/21 05:00 Eosinophils # (Manual) 0.0 K/mm3 (0.0-0.4) 12/18/21 05:00 Basophils # (Manual) 0.0 K/mm3 (0.0-0.1) 12/18/21 05:00 Metamyelocytes # 0.0 K/mm3 12/18/21 05:00 Myelocytes # 0.0 K/mm3 12/18/21 05:00 Promyelocytes # 0.0 K/mm3 12/18/21 05:00 Blast Cells # 0.0 K/mm3 12/18/21 05:00 WBC Morphology Not Reportable 12/18/21 05:00 Hypersegmented Neuts Not Reportable 12/18/21 05:00 Hyposegmented Neuts Not Reportable 12/18/21 05:00 Hypogranular Neuts Not Reportable 12/18/21 05:00 Smudge Cells Not Reportable 12/18/21 05:00 Toxic Granulation Not Reportable 12/18/21 05:00 Toxic Vacuolation Not Reportable 12/18/21 05:00 Dohle Bodies Not Reportable 12/18/21 05:00 Pelger-Huet Anomaly Not Reportable 12/18/21 05:00 Faye Rods Not Reportable 12/18/21 05:00 Platelet Estimate Consistent w auto 12/18/21 05:00 Clumped Platelets Not Reportable 12/18/21 05:00 Plt Clumps, EDTA Few 12/18/21 05:00 Large Platelets Not Reportable 12/18/21 05:00 Giant Platelets Not Reportable 12/18/21 05:00 Platelet Satelliting Not Reportable 12/18/21 05:00 Plt Morphology Comment Not Reportable 12/18/21 05:00 RBC Morphology Not Reportable 12/18/21 05:00 Dimorphic RBCs Not Reportable 12/18/21 05:00 Polychromasia Few 12/18/21 05:00 Hypochromasia 2+ 12/18/21 05:00 Poikilocytosis Not Reportable 12/18/21 05:00 Anisocytosis 3+ 12/18/21 05:00 Microcytosis 1+ 12/18/21 05:00 Macrocytosis Not Reportable 12/18/21 05:00 Spherocytes Not Reportable 12/18/21 05:00 Pappenheimer Bodies Not Reportable 12/18/21 05:00 Sickle Cells Not Reportable 12/18/21 05:00 Target Cells Not Reportable 12/18/21 05:00 Tear Drop Cells Not Reportable 12/18/21 05:00 Ovalocytes Not Reportable 12/18/21 05:00 Helmet Cells Not Reportable 12/18/21 05:00 Finn-[place] Bodies Not Reportable 12/18/21 05:00 [place] Rings Not Reportable 12/18/21 05:00 [place] Cells Not Reportable 12/18/21 05:00 Bite Cells Not Reportable 12/18/21 05:00 Crenated Cell Not Reportable 12/18/21 05:00 Elliptocytes 1+ 12/18/21 05:00 Acanthocytes (Spur) Not Reportable 12/18/21 05:00 Rouleaux Not Reportable 12/18/21 05:00 Hemoglobin C Crystals Not Reportable 12/18/21 05:00 Schistocytes Not Reportable 12/18/21 05:00 Malaria parasites Not Reportable 12/18/21 05:00 Percent Retic 3.28 % (0.78-2.58) H 12/18/21 05:00 Adria Bodies Not Reportable 12/18/21 05:00 Hem Pathologist Commnt No 12/18/21 05:00 Sodium 139 mmol/L (137-145) 12/18/21 05:00 Potassium 3.9 mmol/L (3.6-5.0) 12/18/21 05:00 Chloride 108.4 mmol/L (98-107) H 12/18/21 05:00 Carbon Dioxide 20 mmol/L (22-30) L 12/18/21 05:00 Anion Gap 15 mmol/L 12/18/21 05:00 BUN 7 mg/dL (7-17) 12/18/21 05:00 Creatinine 0.7 mg/dL (0.6-1.2) 12/18/21 05:00 Estimated GFR > 60 ml/min 12/18/21 05:00 BUN/Creatinine Ratio 10 % 12/18/21 05:00 Glucose 77 mg/dL (65-100) 12/18/21 05:00 Calcium 8.1 mg/dL (8.4-10.2) L 12/18/21 05:00 Total Bilirubin 0.50 mg/dL (0.1-1.2) 12/16/21 19:54 AST 19 units/L (5-40) 12/16/21 19:54 ALT 20 units/L (7-56) 12/16/21 19:54 Alkaline Phosphatase 110 units/L (35-129) 12/16/21 19:54 Troponin T < 0.010 ng/mL (0.00-0.029) 12/17/21 00:20 Total Protein 6.8 g/dL (6.3-8.2) 12/16/21 19:54 Albumin 3.9 g/dL (3.9-5) 12/16/21 19:54 Albumin/Globulin Ratio 1.3 % 12/16/21 19:54 Blood Type A POSITIVE 12/16/21 23:59 Antibody Screen Negative 12/16/21 23:59 Crossmatch See Detail 12/16/21 23:59 Lipscomb/IV: Voiding Method Toilet Active Medications - Current Medications Current Medications: Generic Name Dose Route Start Last Admin Trade Name Freq PRN Reason Stop Dose Admin Acetaminophen 650 mg 12/17/21 01:22 Acetaminophen 325 Mg Tab PO Q4H PRN Pain MILD(1-3)/Fever >100.5/PERALTA Ferric Sodium Gluconate 110 mls @ 100 mls/hr 12/17/21 12:00 12/18/21 12:06 Complex 125 mg/ Sodium IV 12/20/21 11:59 100 mls/hr Chloride DAILY FRANCISCO Administration Sodium Chloride 500 mls @ 0 mls/hr 12/18/21 08:49 12/18/21 12:14 Nacl 0.9% 500 Ml IV 12/18/21 20:00 50 mls/hr ONCE NR Administration As Directed Magnesium Hydroxide 30 ml 12/17/21 01:22 Magnesium Hydroxide (Mom) Oral Liqd Udc PO Q4H PRN Constipation Morphine Sulfate 2 mg 12/17/21 01:22 Morphine 2 Mg/1 Ml Inj IV Q4H PRN Pain, Moderate (4-6) Morphine Sulfate 4 mg 12/17/21 01:22 Morphine 4 Mg/1 Ml Inj IV Q4H PRN Pain , Severe (7-10) Ondansetron HCl 4 mg 12/17/21 01:22 Ondansetron 4 Mg/2 Ml Inj IV Q8H PRN Nausea And Vomiting Sodium Chloride 10 ml 12/17/21 10:00 12/18/21 12:06 Sodium Chloride 0.9% 10 Ml Flush Syringe IV 10 ml BID FRANCISCO Administration Sodium Chloride 10 ml 12/17/21 01:22 Sodium Chloride 0.9% 10 Ml Flush Syringe IV PRN PRN LINE FLUSH
--- NOTE | 2021-12-18 13:40 | Electrocardiograph Report ---
[facility] Test Date: 2021-12-17 Test Time: 02:32:33 Pat Name: PRABHU CASPER Department: Room: A3 1 Gender: F Production Wood Craftsman: MARIAH : 1985 Requested By: LISA FERGUSON Order Number: [id number] Reading MD: Travis Howe Measurements Intervals [place] Rate: 89 P: 75 OH: 204 QRS: 15 QRSD: 94 T: 107 QT: 384 QTc: 467 Interpretive Statements Sinus rhythm Borderline prolonged OH interval Probable LVH with secondary repol abnrm No previous ECG available for comparison Electronically Signed On 12-18-2021 13:40:40 EDT by Travis Howe
[2021-12-19 05:54] LABS: Hematocrit 23.7 % (30.3-42.9); Hemoglobin 7.5 gm/dl (10.1-14.3); Mean Corpuscular HGB Conc 32 % (30-34); Mean Corpuscular Volume 75 fl (79-97); Platelet Count 742 K/mm3 (140-440); Red Blood Count 3.17 M/mm3 (3.65-5.03)
[2021-12-19 06:13] LABS: Red Cell Distribution Width 34.9 % (13.2-15.2)
[2021-12-19 06:54] LABS: Anisocytosis 3+; Basophils % (Manual) 0 % (0.0-1.8); Hypochromasia 1+; Total Cells Counted 100
[2021-12-19 06:57] LABS: Large Platelets Few; Macrocytosis Few
[2021-12-19 06:58] LABS: Ovalocytes 1+; Platelet Estimate Consistent w Auto; Tear Drop Cells Rare
[2021-12-19 10:12] VITALS: BP 130/80
--- NOTE | 2021-12-19 10:12 | Discharge Summary ---
Providers - Providers Date of Admission: 12/17/21 01:22 Date of discharge: 12/19/21 Attending physician: EMILIA SINHA 12/17/21 01:29 Consult to Physician [CONS] Routine Comment: Consulting Provider: MARCUS JULIO Physician Instructions: Reason For Exam: Anemia Primary care physician: ASSOCIATE [employer] DEVELOPER Hospitalization Reason for admission: Symptomatic anemia Condition: Stable Hospital course: This is a 36yo AA female who presents to [facility] ED with generalized weakness, shortness of breath and lower extremity swelling. Past medical history of anemia. Denies coffee-ground emesis, dysuria, hematuria, blood in stool. Work-up in the emergency room reveal hemoglobin of 4.2 and hematocrit of 15.1. Chest x- ray shows borderline cardiomegaly without acute pulmonary abnormality. Hematology was consulted for evaluation of anemia. The patient was admitted with diagnosis below Severe iron deficiency anemia Thrombocytosis Bilateral lower extremity edema 12/17/2021. We will rule out sickle cell, thalassemia and hemolysis. Hematology following. Start Ferrlecit 125 mg daily x3 days. 3 unit PRBCs ordered. Unable to obtain iron studies post RBC transfusions as results would be uninterpretable. Labs to include anemia workup: hgEP, LDH, retic. Bilateral lower extremity ultrasound to rule out DVT 12/18/2021. Patient received 1 unit PRBCs today with hemoglobin 6.3. Patient is to continue Ferrlecit 125 mg IV daily x3 days with her second dose today. Patient may potentially discharge after IV Ferrlecit tomorrow. Bilateral lower extremity ultrasound negative 12/19/2021. Patient's hemoglobin has stabilized at 7.5. Patient to complete Ferrlecit today. We will discharge home today and have follow-up with hematology as an outpatient. Dedicated discharge time 35 minutes Disposition: HOME / SELF CARE / HOMELESS Final Discharge Diagnosis (Prints w/discharge instructions): Severe iron deficiency anemia. Thrombocytosis. Bilateral lower extremity edema Core Measure Documentation - Palliative Care Palliative Care/ Comfort Measures: Not Applicable - Core Measures Any of the following diagnoses?: none Exam - Constitutional Vitals: Temp Pulse Resp BP Pulse Ox 98.3 F 81 18 151/90 98 12/19/21 05:50 12/19/21 05:50 12/19/21 05:50 12/19/21 05:50 12/19/21 05:50 General appearance: Present: no acute distress, well-nourished - EENT Eyes: Present: PERRL ENT: hearing intact, clear oral mucosa - Neck Neck: Present: supple, normal ROM - Respiratory Respiratory effort: normal Respiratory: bilateral: CTA - Cardiovascular Heart Sounds: Present: S1 & S2. Absent: rub, click - Extremities Extremities: pulses symmetrical, No edema Peripheral Pulses: within normal limits - Abdominal General gastrointestinal: Present: soft, non-tender, non-distended, normal bowel sounds Female genitourinary: Present: normal - Integumentary Integumentary: Present: clear, warm, dry - Musculoskeletal Musculoskeletal: gait normal, strength equal bilaterally - Psychiatric Psychiatric: appropriate mood/affect, intact judgment & insight - Neurologic Neurologic: CNII-XII intact, moves all extremities Plan Activity: advance as tolerated Weight Bearing Status: Weight Bear as Tolerated Diet: regular Follow up with: PRIMARY CARE, [Primary Care Provider] - 7 Days MARCUS JULIO MD [Staff Physician] - 7 Days
[2021-12-19] MEDS: SODIUM FERRIC GLUCON/SUCRO 125 MG in SODIUM CHLORIDE 0.9% 100 ML IV SCH (10:36)
== END 2021-12-19 17:54 | disposition home or self-care (01) | DRG 812 ==
LOC: ED 10:19 → 3A 12-17 01:22
PROVIDERS: ADMIT Internal Medicine Geriatric Medicine; ATTEND Hospitalist
PROC: 30233N1 Transfusion of Nonautologous Red Blood Cells into Peripheral Vein, Percutaneous Approach (ICD-10-PCS; principal; 2021-12-17)
DX: D50.9 Iron deficiency anemia, unspecified (principal); D75.839 Thrombocytosis, unspecified; R60.0 Localized edema; Z80.3 Family history of malignant neoplasm of breast
CPT/HCPCS: 36415; 71046; 80048; 80053; 82270; 84484; 85007; 85025; 85045; 86850; 86900; 86901; 86920; 93005; 93970; G0378; J2916; J7040; P9016